=== PATIENT | female | born 1945 | race Caucasian/White ===

== ENCOUNTER 2023-01-09 22:27 | Emergency (ER) | payer MEDICARE, SELFPAY ==
[2023-01-09 22:31] VITALS: PULSE 177; RESP 20; TEMP 36.8; O2SAT 100; BMI 25.0
[2023-01-09 22:34] VITALS: BP 160/119; PULSE 161; RESP 17; O2SAT 100
[2023-01-09 22:35] VITALS: O2SAT 100
--- NOTE | 2023-01-09 22:40 | RAD_ITS ---
EXAM: XR CHEST, 1 VIEW CLINICAL INDICATION: chest pain TECHNIQUE: Frontal view of the chest. COMPARISON: No relevant prior studies available. FINDINGS: LUNGS AND PLEURAL SPACES: Unremarkable. No consolidation or edema. No pneumothorax. No effusion. HEART: Upper normal heart size with normal pulmonary vasculature. MEDIASTINUM: Mild elongation and calcification of the thoracic aorta. No mediastinal widening. Trachea is midline. BONES/JOINTS: No acute osseous abnormality. SOFT TISSUES: Unremarkable. RAD/Chest 1 View (Portable) IMPRESSION: No radiographic evidence of acute cardiopulmonary disease. Electronically Signed: King Goodrich MD at 23:23 EDT ,
[2023-01-09 22:53] LABS: International Normalized Ratio 0.9; Prothrombin Time (Protime)PT. 12.5 SECONDS (11.7-14.9)
[2023-01-09 22:59] LABS: Anion Gap 8 (5-15); BUN 25 mg/dL (7-18); BUN/Creat Ratio 25.4 RATIO (10-20); Calcium,Total 9.5 mg/dL (8.5-10.1); Chloride 110 mmol/L (98-107); Creatinine, Serum 0.98 mg/dL (0.55-1.02); EST Glomerular Filtration Rate 58 mL/min (>60); Est Glom Filt Rate - Afr Amer 71 mL/min (>60); Estimated Creatinine Clearance 38.63 ml/min; Glucose 99 mg/dL (74-106); Potassium 3.5 mmol/L (3.5-5.1); Sodium Level 138 mmol/L (136-145); Troponin-I HS (w/2H Reflex) 4 pg/mL (3.0-54.0)
[2023-01-09 23:01] LABS: Absolute Lymphocyte Count 1.97 X10^3/uL (0.83-4.51); Absolute Neutrophil Count 2.9 X10^3/uL (2.0-7.7); Basophil# 0.05 X10^3/uL; Basophil% 0.9 % (0-1); Eosinophil# 0.19 X10^3/uL; Eosinophils% 3.4 % (0-5); Hematocrit 36.5 % (37-47); Hemoglobin 11.4 g/dL (12.0-15.0); Lymphocyte # 1.97 X10^3/ul (0.83-4.51); Lymphocyte % 34.7 % (19-41); Mean Corp Hgb Conc 31.2 g/dL (32-36); Mean Corpuscular Hgb 29.5 pg (27.0-32.0); Mean Corpuscular Volume 94.3 fL (81-99); Mean Platelet Vol. 9.9 fl (6.2-12.0); Monocyte# 0.55 X10^3/uL; Monocyte% 9.7 % (0-10); NRBC Flagged by Analyzer 0 % (0-5); Neutrophil # 2.87 X10^3/uL (2.7-7.7); Neutrophil % 50.6 % (47-70); Platelet Count 254 K/mm3 (150-450); RBC Distribution Width CV 13.2 % (11.6-14.6); RBC Distribution Width SD 45.4 fl (35.1-43.9); Red Blood Count 3.87 M/mm3 (4.2-5.4); White Blood Count 5.7 K/mm3 (4.4-11.0)
--- NOTE | 2023-01-09 23:09 | EX.ED.DYSGE1 ---
HPI History of Present Illness Chief Complaint: Palpitations Detail of Chief Complaint: Racing heart Informant: patient Narrative Narrative: Patient presents with racing heart that started at about 7 PM. Patient states she has a history of SVT 15 years ago and she had an ablation and had no more issues. Patient states that for several months she had intermittent episodes of palpitations but then she will cough and it will can go away they are not long-lasting. Tonight she continues to experience this tachycardia. She denies any chest pain. Denies shortness of breath. Patient is from [place] and came up to [place] about 3 weeks ago. No history of PE or DVT. Patient does have history of hypertension. [facility] Medical History (Updated 01/10/23 @ 00:[address] Valerie Amor, ) HTN (hypertension) Home Medications losartan 25 mg tablet 25 mg PO DAILY 01/09/23 [History Last Taken Unknown] apixaban 5 mg tablet (Eliquis) 5 mg PO BID #60 tabs 01/10/23 [Rx Last Taken Unknown] metoprolol tartrate 25 mg tablet 25 mg PO BID #60 tabs 01/10/23 [Rx Last Taken Unknown] Allergy/AdvReac Type Severity Reaction Status Date / Time No Known Allergies Allergy Verified 01/09/23 22:34 Social History Smoking Status: Never smoker ROS ROS ED Review of Systems ROS Unobtainable: other Constitutional Constitutional ED: Reports lethargy; Denies chills, fever(s), sweats or weight loss Eyes Eyes: Denies blurry vision, change in vision or diplopia ENT ENT ED: Denies rhinorrhea or sore throat Cardiovascular Cardiovascular: Reports palpitations and racing heartbeat; Denies chest pain or orthopnea Respiratory/Chest Respiratory/Chest: Denies cough, dyspnea, dyspnea on exertion, orthopnea or sputum Gastrointestinal Gastrointestinal: Denies abdominal pain, diarrhea, nausea or vomiting Genitourinary Genitourinary ED: Denies dysuria, hematuria or urinary frequency Musculoskeletal Musculoskeletal: Denies arthralgias, back pain, myalgias or neck pain Integumentary Denies abscess, Abrasions or rash Neurologic Neurologic: Denies headache(s) or weakness Psychiatric Psychiatric: Denies anxiety, depression or suicidal thoughts Endocrine Endocrinology: Denies polydipsia, polyphagia or polyuria Hematologic/Lymphatic Hematologic/Lymphatic: Denies easy bleeding, easy bruising or lymphadenopathy Allergic/Immunologic Allergic/Immunologic ED: Denies mouth swelling, tongue swelling or urticaria EXAM Physical Exam Const Vital Signs: 01/09/23 22:31 01/09/23 22:34 01/09/23 22:35 Temperature 98.3 F Temperature Source Temporal Pulse Rate 177 H 161 H Respiratory Rate 20 H 17 Blood Pressure 160/119 H Blood Pressure Mean 132 Pulse Ox 100 100 100 Oxygen Delivery Method Room Air Room Air Room Air 01/09/23 23:13 01/09/23 23:19 01/10/23 00:00 Temperature Temperature Source Pulse Rate 81 81 77 Respiratory Rate 15 16 Blood Pressure 158/78 H 135/69 H Blood Pressure Mean 104 91 Pulse Ox 100 97 Oxygen Delivery Method Room Air Room Air Positive well nourished and well developed General Appearance ED: well developed and NAD HEENT Reports TM's clear and moist mucous membranes normocephalic and atraumatic; Negative for trauma or tenderness Tympanic Membrane ED: Yes TM's clear Eyes PERRL and EOMs intact bilaterally General Eye ED: Negative for pale conjunctiva or scleral icterus Neck no lymphadenopathy, supple and no JVD General: Negative for tenderness Chest Wall inspection of chest normal and palpation of chest normal Chest: Negative for tenderness Resp normal respiratory effort and clear to auscultation bilaterally Effort and Inspection: Negative for respiratory distress or pain with movement Auscultation: Negative for rhonchi, wheezes or diminished lung sounds Cardio S1 normal heart sound, S2 normal heart sound and no murmurs; Negative for regular rate or regular rhythm Rhythm: abnormal rhythm irregularly irregular Peripheral Pulses: pulses 2+ throughout GI normal to inspection, nondistended, normoactive bowel sounds, soft to palpation, non-tender, non-distended and no masses Back/Spine no CVA tenderness and no thoracic nor lumbar tenderness Extremity normal to inspection General Extremety ED: Negative for edema General Extremity: Negative for edema Neuro oriented x3, CN's II-XII intact bilaterally, no sensory deficits noted and gait normal Sensorium / Orientation: awake, alert, oriented to person, oriented to place and oriented to time Motor Exam: strength 5/5 throughout and strength abnormal Psych mental status grossly normal Skin no rashes or lesions noted and no wounds MDM MDM MDM Narrative Medical decision making narrative: Patient presents with tachycardia. On monitor noted to be in A-fib. EKG obtained arrival showed atrial fibrillation with rapid ventricular response. Lab work-up initiated initially via protocol by nursing staff. I did order initially Cardizem 20 mg IV bolus however prior to giving the medication patient coughed and she converted to sinus rhythm. Repeat EKG showed sinus rhythm with a rate of [address] changes. CBC with differential was unremarkable. Chemistries unremarkable. Troponin was normal at 4. D-dimer was normal. Chest x-ray unremarkable. Discussed case with lithographic retoucher apprentice on-call Dr. Robledo. It was recommended that we calculated James score which was 2 for her. Patient will be started on metoprolol 25 mg twice daily. She will be started on Eliquis 5 mg twice daily. Patient will be referred to cardiology for follow-up. Lab Data Attestation: I reviewed the patient's lab results. Labs: Laboratory Results - last 24 hr 01/09/23 01/09/23 01/09/23 22:13 22:13 22:13 WBC 5.7 RBC 3.87 L Hgb 11.4 L Hct 36.5 L MCV 94.3 MCH 29.5 MCHC 31.2 L RDW Std Deviation 45.4 H RDW Coeff of Raul 13.2 Plt Count 254 MPV 9.9 Immature Gran % (Auto) 0.700 Neut % (Auto) 50.6 Lymph % (Auto) 34.7 [place] % (Auto) 9.7 Eos % (Auto) 3.4 Baso % (Auto) 0.9 Absolute Neuts (auto) 2.9 Absolute Lymphs (auto) 1.97 Nucleated RBC % 0 PT 12.5 INR 0.9 D-Dimer Quant (PE/DVT) Sodium 138 Potassium 3.5 Chloride 110 H Carbon Dioxide 20.0 L Anion Gap 8 BUN 25 H Creatinine 0.98 Estim Creat Clear Calc 38.63 Est GFR (MDRD) Af Amer 71 Est GFR (MDRD) Non-Af 58 L BUN/Creatinine Ratio 25.4 H Glucose 99 Calcium 9.5 Troponin I High Sens 4 01/09/23 22:37 WBC RBC Hgb Hct MCV MCH MCHC RDW Std Deviation RDW Coeff of Raul Plt Count MPV Immature Gran % (Auto) Neut % (Auto) Lymph % (Auto) [place] % (Auto) Eos % (Auto) Baso % (Auto) Absolute Neuts (auto) Absolute Lymphs (auto) Nucleated RBC % PT INR D-Dimer Quant (PE/DVT) < 0.27 L Sodium Potassium Chloride Carbon Dioxide Anion Gap BUN Creatinine Estim Creat Clear Calc Est GFR (MDRD) Af Amer Est GFR (MDRD) Non-Af BUN/Creatinine Ratio Glucose Calcium Troponin I High Sens Radiography Chest X-Ray - ED: 1 View Diagnostic Testing: Clinical Impression(s) from Imaging Studies Chest X-Ray 01/09/23 22:40 IMPRESSION: No radiographic evidence of acute cardiopulmonary disease. Electronically Signed: King Goodrich MD at 23:23 EDT , 1 view chest x-ray obtained interpreted by myself as no evidence of infiltrate or pneumothorax or acute disease process. EKG Initial EKG: Attestation: I personally reviewed and interpreted this EKG as follows: Comments: Initial EKG showed atrial fibrillation with rapid ventricular response with a rate of [address] changes. Second EKG after patient converted showed a sinus rhythm with a rate of [address] changes. Discharge Plan Triage Chief Complaint: Palpitations ED Provider: Valerie Amor Dx/Rx/DC Orders Clinical Impression: AF (paroxysmal atrial fibrillation) Instructions: ED AFIB Prescriptions: New metoprolol tartrate 25 mg tablet 25 mg PO BID Qty: 60 0RF Eliquis 5 mg tablet 5 mg PO BID Qty: 60 0RF No Action losartan 25 mg Tablet 25 mg PO DAILY Primary Care Provider: Care Physician,No Primary Referrals: Darcy Robledo MD [Med Staff - Active Staff] - 3-5 Days Danilo Loja MD [Med Staff - Active Staff] - 3-5 Days NOT,DEFINED [Non-Staff] - Disposition Disposition: Home, Self Care
[2023-01-09 23:13] VITALS: PULSE 81; RESP 15; O2SAT 100
[2023-01-09 23:19] VITALS: BP 158/78; PULSE 81
[2023-01-09 23:51] LABS: D-Dimer Quantitative (DVT/PE) < 0.27 FEU/ug/m (0.27-0.49)
[2023-01-10] VITALS: BP 135/69; PULSE 77; RESP 16; O2SAT 97
[2023-01-10] MEDS: APIXABAN 5 MG TABLET PO (00:19)
[2023-01-10] MEDS: Metoprolol Tartrate 25 MG Tablet PO (00:19)
[2023-01-10 00:24] VITALS: BP 139/69; PULSE 75; RESP 14; O2SAT 98
[2023-01-10 00:37] LABS: Reflex Troponin-HS? (from REC) Y
== END 2023-01-10 00:25 | disposition home or self-care (01) ==
PROVIDERS: Emergency Provider Emergency Medicine; Visit Provider Emergency Medicine
DX: I48.0 Paroxysmal atrial fibrillation (principal); I10 Essential (primary) hypertension; Z79.899 Other long term (current) drug therapy
CPT/HCPCS: 71045; 80048; 84484; 85025; 85379; 85610; 93005; 96374; 99285; J7030

== ENCOUNTER → 2023-02-06 | Outpatient (CLI) | payer MEDICARE, SELFPAY ==
--- NOTE | 2023-02-06 07:15 | ECHOD_ITS ---
Reason For Study: Palpitations Procedure This was a 2D Doppler, Color Flow transthoracic echocardiogram. Exam performed in department. Left Ventricle Normal size and thickness. The left ventricular ejection fraction is 60 %. Diastolic function is indeterminate. Right Ventricle Normal right ventricle. Atria The left and right atria are normal. Mitral Valve Mild-Moderate (1-2+) eccentric mitral valve insufficiency. Tricuspid Valve Mild tricuspid valve insufficiency. Right ventricular systolic pressure estimated to be 46 mmHg. Aortic Valve Normal aortic valve. Pulmonic Valve The pulmonic valve is not well visualized. Great Vessels Normal sized aortic root. Pericardium/Pleural No pericardial effusion. MMode/2D Measurements & Calculations LVIDd: 4.7 cm IVSd: 1.1 cm Ao root diam: 3.2 cm LVIDs: 3.6 cm LVPWd: 0.85 cm LA dimension: 3.5 cm RVDd: 3.3 cm FS: 23.7 % LAV(MOD-bp): 57.3 ml LVAd ap4: 24.5 cm2 SV(MOD-sp4): 47.8 ml LAV(MOD-bp) Indexed: 36.3 ml/m2 LVLd ap4: 6.3 cm LAV(MOD-sp2): 51.3 ml EDV(MOD-sp4): 77.4 ml LAV(MOD-sp4): 59.1 ml EDV(sp4-el): 80.3 ml LVAs ap4: 13.0 cm2 LVLs ap4: 5.0 cm ESV(MOD-sp4): 29.6 ml ESV(sp4-el): 28.9 ml EF(MOD-sp4): 61.8 % EF(sp4-el): 64.1 % SV(sp4-el): 51.5 ml LA A4 area: 20.7 cm2 RA A4 area: 18.7 cm2 Time Measurements MV dec time: 0.19 sec Doppler Measurements & Calculations MV E max maximiliano: 100.7 cm/sec Lat Peak E' Maximiliano: 8.9 cm/sec Med Peak E' Maximiliano: 12.4 cm/sec MV A max maximiliano: 63.4 cm/sec E/E' lat: 11.3 E/E' med: 8.1 MV E/A: 1.6 MV V2 max: 102.7 cm/sec MV P1/2t max maximiliano: 103.9 cm/sec Ao V2 max: 87.3 cm/sec MV max P.2 mmHg MV P1/2t: 60.0 msec Ao max P.1 mmHg MV V2 mean: 42.6 cm/sec Ao V2 mean: 56.8 cm/sec MV mean P.96 mmHg MV dec slope: 507.2 cm/sec2 Ao mean P.5 mmHg MV V2 VTI: 30.2 cm MVA(P1/2t): 3.7 cm2 Ao V2 VTI: 24.3 cm AV (velocity ratio): 0.95 LV V1 max: 81.3 cm/sec MR max maximiliano: 640.8 cm/sec PA V2 max: 69.9 cm/sec LV V1 max P.6 mmHg MR max P.3 mmHg PA V2 mean: 51.3 cm/sec LV V1 mean P.4 mmHg MR mean maximiliano: 539.4 cm/sec LV V1 mean: 57.0 cm/sec MR mean P.3 mmHg LV V1 VTI: 23.2 cm MR VTI: 284.7 cm TR max maximiliano: 279.4 cm/sec TR max P.2 mmHg ECHO/Echo Complete Interpretation Summary The left ventricular ejection fraction is 60 %. Diastolic function is indeterminate. Mild-Moderate (1-2+) eccentric mitral valve insufficiency. Mild tricuspid valve insufficiency. Right ventricular systolic pressure estimated to be 46 mmHg. Ordering Physician: Darcy Robledo Referring Physician: Darcy Robledo Performed By: Eber Lo [facility]
[2023-02-06 11:46] LABS: Thyroid Stim Hormone (TSH) 3.04 uIU/mL (0.358-3.74)
--- NOTE | 2023-02-06 12:49 | STRESSREP ---
Stress Test Report Date: 02/06/2023 Procedure: Pharmacologic stress nuclear imaging study Indications: Arrhythmia Consent: Per the patient Procedure: The patient underwent pharmacologic (Regadenoson 0.4mg ) evaluation with a peak heart rate of 85 beats per minute (59%predicted maximal heart rate) and a peak blood pressure of 174/77 mmHg. The baseline ECG demonstrated normal sinus rhythm with nonspecific ST changes. The peak pharmacologic ECG demonstrated nondiagnostic because of baseline changes. There were no cardiac dysrhythmias pretest, during pharmacologic infusion, or recovery. There was no complaint of chest discomfort during pharmacologic infusion or recovery. The patient was injected with 10.5 millicuries of technetium 99m Cardiolite and subsequently rest SPECT Cardiolite nuclear imaging was obtained in the horizontal long, vertical long, and short axis views. The patient underwent pharmacologic (Regadenoson) evaluation. The patient was injected with 33.6 millicuries of technetium 99m Cardiolite and subsequently stress SPECT Cardiolite nuclear imaging was obtained in the horizontal long, vertical long, and short axis views. A gated Cardiolite study at peak stress was obtained. The examination was stopped secondary to completion of protocol. Rest and stress SPECT Cardiolite nuclear imaging status post realignment, normalization, and attenuation correction demonstrate no fixed or reversible perfusion defect. There is end systolic thickening and brightening. The gated Cardiolite study demonstrates myocardial thickening and inward wall motion. The reported LVEF is 82%. Impression: 1. Pharmacologic (Regadenoson) evaluation 2. Peak pharmacologic ECG with nondiagnostic changes. 3. There were no cardiac dysrhythmias pretest, during pharmacologic infusion, or recovery. 5. Rest and stress SPECT Cardiolite nuclear imaging demonstrate relative uniform tracer uptake and myocardial perfusion appearing within normal limits. 6. The gated Cardiolite study reports an LVEF of 82%. This note was generated with Carly[employer]ation software. It may contain incorrect words, spelling, and punctuation that were not noted in checking the note before signing.
== END | disposition home or self-care (01) ==
PROVIDERS: Referring Provider Internal Medicine Cardiovascular Disease; Visit Provider Internal Medicine Cardiovascular Disease
DX: R00.2 Palpitations (principal); I48.0 Paroxysmal atrial fibrillation; I47.1 Supraventricular tachycardia; I34.0 Nonrheumatic mitral (valve) insufficiency
CPT/HCPCS: 36415; 78452; 84443; 93017; 93306; A9500; A4216; J2785

== ENCOUNTER → 2023-05-01 | Outpatient (CLI) | payer MEDICARE, SELFPAY ==
[2023-05-01 11:15] LABS: Anion Gap 4 (5-15); BUN 22 mg/dL (7-18); BUN/Creat Ratio 24.7 RATIO (10-20); Calcium,Total 9.1 mg/dL (8.5-10.1); Chloride 115 mmol/L (98-107); Creatinine, Serum 0.89 mg/dL (0.55-1.02); EST Glomerular Filtration Rate 66 mL/min (>60); Est Glom Filt Rate - Afr Amer 79 mL/min (>60); Glucose 83 mg/dL (74-106); Potassium 3.6 mmol/L (3.5-5.1); Sodium Level 141 mmol/L (136-145)
== END | disposition home or self-care (01) ==
PROVIDERS: Referring Provider Internal Medicine Cardiovascular Disease; Visit Provider Internal Medicine Cardiovascular Disease
DX: I34.0 Nonrheumatic mitral (valve) insufficiency (principal); I47.1 Supraventricular tachycardia; I48.0 Paroxysmal atrial fibrillation; I10 Essential (primary) hypertension; Z86.79 Personal history of other diseases of the circulatory system
CPT/HCPCS: 36415; 80048

== ENCOUNTER → 2024-02-27 | Outpatient (CLI) | payer MEDICARE, SELFPAY ==
[2024-02-27 16:11] LABS: Anion Gap 8 (5-15); BUN 26 mg/dL (7-18); BUN/Creat Ratio 27.4 RATIO (10-20); Calcium,Total 8.9 mg/dL (8.5-10.1); Chloride 110 mmol/L (98-107); Creatinine, Serum 0.95 mg/dL (0.55-1.02); EST Glomerular Filtration Rate 61 mL/min (>60); Est Glom Filt Rate - Afr Amer 73 mL/min (>60); Glucose 98 mg/dL (74-106); Potassium 3.8 mmol/L (3.5-5.1); Sodium Level 141 mmol/L (136-145)
== END | disposition home or self-care (01) ==
LOC: LAB 13:57
PROVIDERS: Referring Provider Nurse Practitioner Family; Visit Provider Nurse Practitioner Family
DX: I10 Essential (primary) hypertension (principal); I48.0 Paroxysmal atrial fibrillation; I34.0 Nonrheumatic mitral (valve) insufficiency
CPT/HCPCS: 36415; 80048

== ENCOUNTER 2024-04-26 20:13 | Emergency (ER) | payer MEDICARE, SELFPAY ==
[2024-04-26 20:14] VITALS: BP 177/73; PULSE 65; RESP 18; TEMP 36.1; O2SAT 100; BMI 24.2
--- NOTE | 2024-04-26 20:30 | EDS_ITS ---
HPI HPI - Female History of Present Illness Chief Complaint: Complaint Detail of Chief Complaint: Hematuria. Informant: patient Associated Symptoms Associated Symptoms: Positive for Hematuria; Negative for Dysuria, Frequency or Urgency Narrative Narrative: 78-year-old female history of A-fib and anemia on Eliquis. Today she noticed darker than normal urine and then blood-tinged. No clots. Denies any urinary symptoms. No dysuria. No frequency or urgency. Says she has been feeling fine recently. Denies any nosebleeds or rectal bleeding. No excessive bruising lately. She went to the urgent care at [facility] who sent her to the emergency department. She denies any other complaints. Prior similar symptoms: Yes Recent Illness/Hospitalization: No PFSH PFSH Medical History Fatigue History of supraventricular tachycardia Mitral regurgitation SVT (supraventricular tachycardia) Paroxysmal atrial fibrillation Essential hypertension HTN (hypertension) Home Medications ?Medication ?Instructions ?Recorded ?Last Taken ?Type calcium carbonate (Calcium 600) 500 mg PO DAILY 04/24/23 Unknown History losartan 25 mg tablet 25 mg PO BID #180 tabs 10/02/23 Unknown Rx diphenhydramine 25 1 tab PO QHS PRN 01/26/24 Unknown History mg-acetaminophen 500 mg tablet (Tylenol PM Extra Strength) apixaban 5 mg tablet (Eliquis) 5 mg PO BID #180 tabs 04/07/24 Unknown Rx Allergy/AdvReac Type Severity Reaction Status Date / Time No Known Allergies Allergy Verified 04/26/24 20:14 Family History Mother Congestive heart failure Hypertension Father Cancer Pancreatic Myocardial infarction Hypertension Surgical History History of cardiac radiofrequency ablation History of cholecystectomy History of hysterectomy Social History Smoking Status: Never smoker alcohol intake: current details: wine substance use type: does not use caffeine: Yes Type: carbonated beverages Number of servings: 1 and coffee Number of servings: 1 ROS ROS ED ROS Narrative Denies recent illness. Constitutional Constitutional ED: Denies chills or fever(s) Eyes Eyes: Denies blurry vision ENT ENT ED: Denies ear pain Cardiovascular Cardiovascular: Denies chest pain Respiratory/Chest Respiratory/Chest: Denies cough Gastrointestinal Gastrointestinal: Denies abdominal pain Genitourinary Genitourinary ED: Reports hematuria; Denies dysuria or urinary frequency Musculoskeletal Musculoskeletal: Denies arthralgias Integumentary Denies abscess or Abrasions Neurologic Neurologic: Denies headache(s) Psychiatric Psychiatric: Denies anxiety Endocrine Endocrinology: Denies heat intolerance Hematologic/Lymphatic Hematologic/Lymphatic: Denies easy bleeding Allergic/Immunologic Allergic/Immunologic ED: Denies mouth swelling EXAM Physical Exam Narrative Exam Narrative: Well-appearing 78-year-old female. Vital signs are stable afebrile. H EENT exam normal. Neck nontender. No lymphadenopathy. Lungs clear to auscultation bilaterally. Heart regular rate and rhythm rate about 65 no murmur. Chest wall ribs nontender. Abdomen soft nontender. Moving all 4 extremities. Nontender no edema no cords. No excessive bruising. She is awake and alert no focal motor deficits. Back nontender. No CVA tenderness. Benign exam. Const Vital Signs: 04/26/24 20:14 Temperature 96.9 F L Temperature Source Temporal Pulse Rate 65 Respiratory Rate 18 Blood Pressure 177/73 H Blood Pressure Mean 107 Pulse Ox 100 Oxygen Delivery Method Room Air Positive well nourished and well developed; Negative for obese, cachectic, contractures or unkempt General Appearance ED: well developed and NAD; Negative for unkempt, cachectic, contractures or pallor Nutritional Appearance: Negative for cachectic or obese HEENT Reports moist mucous membranes Negative for trauma or tenderness Eyes PERRL and EOMs intact bilaterally General Eye ED: Negative for pale conjunctiva Neck no lymphadenopathy, supple and no JVD Chest Wall inspection of chest normal and palpation of chest normal Resp normal respiratory effort and clear to auscultation bilaterally Auscultation: Negative for rales, rhonchi, wheezes or diminished lung sounds Cardio regular rate, regular rhythm, S1 normal heart sound, no murmurs and no JVD Rate: Negative for bradycardia or tachycardic Rhythm: Negative for abnormal rhythm GI normal to inspection, nondistended, normoactive bowel sounds, soft to palpation, non-tender, non-distended and no masses Palpation: Negative for tender, guarding, rigid or mass Back/Spine no CVA tenderness General Back: Negative for CVA tenderness Cervical Spine: Negative for cervical spine tenderness Thoracic Spine / Upper Back: Negative for thoracic spinal tenderness Lumbar Spine / Lower Back: Negative for lumbar spinal tenderness Extremity normal to inspection and full ROM General Extremety ED: Negative for edema or tenderness General Extremity: Negative for edema Neuro oriented x3 and CN's II-XII intact bilaterally Sensorium / Orientation: alert, oriented to person, oriented to place and oriented to time; Negative for confused, lethargic or stuporous Motor Exam: strength 5/5 throughout Psych mental status grossly normal Appearance: Negative for unkempt Attitude: No agitated Speech: No other Mood & Affect: Negative for depressed, anxious or tearful Skin no rashes or lesions noted and no wounds General Skin Exam: Negative for jaundice or pallor Rashes: No rashes noted Trauma: Negative for other MDM MDM MDM Narrative Medical decision making narrative: 78-year-old female had blood-tinged urine today. Had a negative urinalysis done at the [facility] urgent care she showed me the results. There is no nitrites nor white cells. There is just blood. She does not want another UA performed. CBC and chemistry panel be obtained due to her history of anemia. Repeat exam unchanged. Discussed test results with patient. Outpatient follow- up to have her hemoglobin rechecked. History & Record Review Discussion w/independent historian: Patient and Family Lab Data Attestation: I reviewed the patient's lab results. Lab results narrative: CBC shows white count of 5. H&H of 10 and 33.1. Patient has a history of chronic anemia. Platelets 206. Electrolytes show potassium 3.3. Gap 10. BUN and creatinine are 25 and 0.9. Glucose 98. Labs: Laboratory Results - last 24 hr 04/26/24 20:35 WBC 5.1 RBC 3.48 L Hgb 10.0 L Hct 33.1 L MCV 95.1 MCH 28.7 MCHC 30.2 L RDW Std Deviation 45.9 H RDW Coeff of Raul 13.2 Plt Count 206 MPV 9.7 Sodium 140 Potassium 3.3 L Chloride 110 H Carbon Dioxide 20.0 L Anion Gap 10 BUN 25 H Creatinine 0.93 Estim Creat Clear Calc 40.07 Est GFR (MDRD) Af Amer 75 Est GFR (MDRD) Non-Af 62 BUN/Creatinine Ratio 26.9 H Glucose 98 Calcium 9.3 Discharge Plan Triage Chief Complaint: Complaint ED Provider: Stalin Coles Dx/Rx/DC Orders Clinical Impression: Hematuria, Chronic anticoagulation, Anemia Instructions: ED Hematuria Prescriptions: No Action calcium carbonate [Calcium 600] 600 mg calcium (1,500 mg) tablet 500 mg PO DAILY diphenhydramine-acetaminophen [Tylenol PM Extra Strength] 25-500 mg tablet 1 tab PO QHS PRN losartan 25 mg tablet 25 mg PO BID Qty: 180 3RF Eliquis 5 mg tablet 5 mg PO BID Qty: 180 3RF Primary Care Provider: RIMA MERLOS Referrals: Darcy Robledo MD [Med Staff - Active Staff] - 1 Week Care Physician,No Primary [Non-Staff] - Activity Restrictions/Additional Instructions: Follow-up with your primary care physician or Dr. Robledo and have your blood counts rechecked in 1 to 2 weeks. Return if feeling worse. We will send a urine culture if that comes back showing infection we will notify you and started on antibiotics. Plenty of fluids to keep clearing the blood out of your bladder so your bladder does not get obstructed by blood clots. Return if fever, feeling worse or much heavier bleeding. Print Language: Irish Disposition Disposition: Home, Self Care
[2024-04-26 20:54] LABS: Hematocrit 33.1 % (37-47); Mean Corp Hgb Conc 30.2 g/dL (32-36); Mean Corpuscular Hgb 28.7 pg (27.0-32.0); Mean Corpuscular Volume 95.1 fL (81-99); Mean Platelet Vol. 9.7 fl (6.2-12.0); Platelet Count 206 K/mm3 (150-450); RBC Distribution Width CV 13.2 % (11.6-14.6); RBC Distribution Width SD 45.9 fl (35.1-43.9); Red Blood Count 3.48 M/mm3 (4.2-5.4); White Blood Count 5.1 K/mm3 (4.4-11.0)
[2024-04-26 21:05] LABS: Anion Gap 10 (5-15); BUN 25 mg/dL (7-18); BUN/Creat Ratio 26.9 RATIO (10-20); Calcium,Total 9.3 mg/dL (8.5-10.1); Chloride 110 mmol/L (98-107); Creatinine, Serum 0.93 mg/dL (0.55-1.02); EST Glomerular Filtration Rate 62 mL/min (>60); Est Glom Filt Rate - Afr Amer 75 mL/min (>60); Estimated Creatinine Clearance 40.07 ml/min; Glucose 98 mg/dL (74-106); Potassium 3.3 mmol/L (3.5-5.1); Sodium Level 140 mmol/L (136-145)
[2024-04-26 22:14] VITALS: BP 155/65; PULSE 65; O2SAT 99
[2024-04-26 22:39] VITALS: BP 155/65; PULSE 65; RESP 17; TEMP 36.6; O2SAT 99
== END 2024-04-26 22:43 | disposition home or self-care (01) ==
PROVIDERS: Emergency Provider Emergency Medicine; Visit Provider Emergency Medicine
DX: R31.9 Hematuria, unspecified (principal); I48.0 Paroxysmal atrial fibrillation; I10 Essential (primary) hypertension; Z79.01 Long term (current) use of anticoagulants; D64.9 Anemia, unspecified; Z79.899 Other long term (current) drug therapy; Z90.49 Acquired absence of other specified parts of digestive tract; Z90.710 Acquired absence of both cervix and uterus
CPT/HCPCS: 80048; 85027; 87086; 99283

== ENCOUNTER → 2024-05-04 | Outpatient (CLI) | payer MEDICARE, SELFPAY ==
[2024-05-04 14:41] LABS: Absolute Lymphocyte Count 1.38 X10^3/uL (0.83-4.51); Absolute Neutrophil Count 2.8 X10^3/uL (2.0-7.7); Basophil# 0.06 X10^3/uL; Basophil% 1.2 % (0-1); Eosinophil# 0.25 X10^3/uL; Hematocrit 32.6 % (37-47); Lymphocyte # 1.38 X10^3/ul (0.83-4.51); Lymphocyte % 27.8 % (19-41); Mean Corp Hgb Conc 30.7 g/dL (32-36); Mean Corpuscular Hgb 29.1 pg (27.0-32.0); Mean Corpuscular Volume 94.8 fL (81-99); Mean Platelet Vol. 9.8 fl (6.2-12.0); Monocyte% 10.1 % (0-10); NRBC Flagged by Analyzer 0 % (0-5); Neutrophil # 2.77 X10^3/uL (2.7-7.7); Neutrophil % 55.7 % (47-70); Platelet Count 209 K/mm3 (150-450); RBC Distribution Width CV 12.7 % (11.6-14.6); RBC Distribution Width SD 44.3 fl (35.1-43.9); Red Blood Count 3.44 M/mm3 (4.2-5.4)
== END | disposition home or self-care (01) ==
LOC: LAB 13:52
PROVIDERS: Referring Provider Nurse Practitioner Gerontology; Visit Provider Nurse Practitioner Gerontology
DX: R31.9 Hematuria, unspecified (principal); D64.9 Anemia, unspecified
CPT/HCPCS: 36415; 85025